=== PATIENT | female | born 1965 | race Caucasian/White ===

== ENCOUNTER 2018-05-30 13:07 | Inpatient (IN) | payer OTHER ==
[~2018-05-30] VITALS: Ht 154.9 cm; Wt 62.6 kg
[2018-05-30] MEDS ORDERED: COZAAR50 MG (13:30)
== END 2018-06-01 15:05 | disposition home or self-care (01) | DRG 343 ==
LOC: ER 13:07 → SEC-K 05-31 05:44 → O/R 05-31 10:53 → SURH 05-31 14:05
PROVIDERS: Surgery
PROC: 0DTJ4ZZ Resection of Appendix, Percutaneous Endoscopic Approach (ICD-10-PCS; principal; 2018-05-31 10:45)
DX: K35.89 Other acute appendicitis (principal); B96.29 Other Escherichia coli [E. coli] as the cause of diseases classified elsewhere; B96.1 Klebsiella pneumoniae [K. pneumoniae] as the cause of diseases classified elsewhere

== ENCOUNTER 2019-07-27 04:55 | Day surgery (SDC) | payer OTHER ==
[~2019-07-27 04:55] MED LIST: COZAAR50 MG
== END 2019-07-27 12:25 | disposition home or self-care (01) ==
LOC: CIR.AMB 04:55
DX: K81.1 Chronic cholecystitis (principal); K82.4 Cholesterolosis of gallbladder

== ENCOUNTER 2025-11-05 21:02 | Emergency (ER) | payer OTHER ==
[~2025-11-05] VITALS: Ht 152.4 cm; Wt 63.0 kg
[2025-11-05] MEDS ORDERED: TOPROL XL50 M1 PO (21:14)
[2025-11-06 00:42] LABS: BASO % 0.6 % (0.1-1.2); EOS # 0.26 (0.04-0.54); EOS % 3.7 % (0.7-7.0); LYMPH # 2.27 (1.18-3.74); LYMPH % 32.3 % (19.3-53.1); MEAN PLATELET VOLUME 9.30 fl (9.4-12.4); MONO # 0.57 (0.24-0.82); MONO % 8.1 % (4.7-12.5); NEUT # 3.87 (1.56-6.13); NEUT % 55.0 % (34.0-71.1); RED CELL DISTRIBUTION WIDTH 13.0 % (11.6-14.4)
[2025-11-06 01:19] LABS: INR 1.01
[2025-11-06 01:24] LABS: ALT/SGPT 16 U/L (12-78); AST/SGOT 12 U/L (15-37); BILIRUBIN TOTAL 0.55 mg/dL (0.3-1.2); BUN CREA RATIO 21 (7.0-25.0); CREATININE SERUM 0.61 mg/dL (0.55-1.02); GFR 99.38; GLOBULINA 3.5 G/DL (2.4-3.5); GLUCOSE FASTING 101 mg/dL (65-100); OSMOLALITY SERUM 285 MOSM/KG (275-295)
[2025-11-06 02:06] LABS: URINE APPEARANCE Clear; URINE BILIRRUBIN Negative (NEGATIVE); URINE BLOOD Moderate; URINE COLOR Yellow; URINE GLUCOSE Negative (NEGATIVE); URINE KETONE Negative (NEGATIVE); URINE LEUKOCYTE Small; URINE NITRATE Negative; URINE PROTEIN Negative (NEGATIVE); URINE UROBILINOGEN 0.2 E.U./dl
[2025-11-06 02:13] LABS: URINE BACTERIA 51.4 uL (0.0-1933); URINE EPITHELIAL CELLS 8.7 uL (0.0-38.8); URINE RBC 33.5 uL (0.0-20.8); URINE WBC 36.2 uL (0.0-23.2)
[2025-11-06 02:17] LABS: URINE CAST 0.14 uL (0.0-1.40)
== END 2025-11-06 02:05 | disposition home or self-care (01) ==
LOC: ER 21:03
PROVIDERS: Physician Assistant Medical
DX: R07.89 Other chest pain (principal); I10 Essential (primary) hypertension